=== PATIENT | female | born 1955 | race Caucasian/White ===

== ENCOUNTER 2017-04-02 09:39 | Inpatient (IN) | payer OTHER ==
[~2017-04-02] VITALS: Ht 165.1 cm; Wt 99.7 kg
[2017-04-02 11:08] LABS: EOSINOPHIL (%) 2.4 % (0-5); EOSINOPHIL COUNT 0.3 K/uL (0-0.3); HEMATOCRIT 34.2 % (36.0-46.0); IMMATURE GRANULOCYTE (%) 0.2 % (0.0-0.7); INSTRUMENT ABS NEUTROPHIL CT 7.4 K/uL; LYMPHOCYTE COUNT 3.8 K/uL (1.0-2.8); MCH 30.5 PG (29.0-34.0); MCHC 34.2 G/DL (30.0-36.0); MCV 89.3 FL (83-99); MONOCYTE COUNT 0.9 K/uL (0-0.8); NEUTROPHIL (%) 59.8 % (45-76); NEUTROPHIL COUNT 7.4 K/uL (1.8-6.4); PLATELET COUNT 274 K/uL (156-360); RBC DIS.WIDTH-CV 13.8 % (11.8-14.6); RBC DIS.WIDTH-SD 44.9 % (39-53); RED BLOOD COUNT 3.83 M/uL (3.80-5.20); WHITE BLOOD COUNT 12.4 K/uL (4.1-10.2)
[2017-04-02 11:13] LABS: INTER. NORMALIZED RATIO 1.2; PROTHROMBIN TIME 12.7 SEC (10.2-12.9)
[2017-04-02 11:16] LABS: PTT 25.1 SEC (25-37)
[2017-04-02 11:19] LABS: CHLORIDE 98 mEq/L (99-109); POTASSIUM 3.6 mEq/L (3.7-5.4); SODIUM 136 mEq/L (136-147)
[2017-04-02 11:20] LABS: GLUCOSE 142 mg/dL (70-99)
[2017-04-02 11:22] LABS: ANION GAP 15 MEQ/L (2-14)
[2017-04-02 11:24] LABS: GFR ESTIMATE (CALCULATED) 18 mL/min/
[2017-04-02 11:25] LABS: UREA NITROGEN (BUN) 27 mg/dL (9-23)
[2017-04-02 11:29] LABS: TROP-I INTERPRETATION NEGATIVE; TROPONIN-I 0.04 ng/mL (0.0-0.30)
[2017-04-02] MEDS ORDERED: CILOSTAZOL50 MG PO (13:10)
[2017-04-02] MEDS ORDERED: REBIF44 MCG/0.5 SC (13:13)
[2017-04-02] MEDS ORDERED: HYDROCHLOROTHIA25 MG PO (13:14)
[2017-04-02] MEDS ORDERED: CARVEDILOL6.25 MG PO (13:14)
[2017-04-02] MEDS ORDERED: METFORMIN HCL1000 MG PO (13:15)
[2017-04-02] MEDS ORDERED: TRAMADOL HCL50 MG PO (13:15)
[2017-04-02 13:16] LABS: ADD MIUA? YES; BILIRUBIN NEGATIVE; BLOOD NEGATIVE; COLOR YELLOW ((YELLOW)); GLUCOSE (STRIP) >=500; KETONES 5; LEUKOCYTES LARGE; NITRITE NEGATIVE; PROTEIN (STRIP) 30; SPECIFIC GRAVITY 1.029 (1.000-1.030); UROBILINOGEN 0.2 MG/DL (0.2-1.0)
[2017-04-02] MEDS ORDERED: LOSARTAN POTAS100 MG PO (13:16)
[2017-04-02] MEDS ORDERED: GABAPENTIN400 MG PO (13:16)
[2017-04-02] MEDS ORDERED: LEVEMIR100 UNIT/2 SC (13:17)
[2017-04-02] MEDS ORDERED: OMEPRAZOLE20 M2 PO (13:17)
[2017-04-02] MEDS ORDERED: GLIPIZIDE XL10 MG PO (13:18)
[2017-04-02] MEDS ORDERED: ERGOCALCIF50000 UNIT PO (13:18)
[2017-04-02] MEDS ORDERED: VITAMIN C1000 MG PO (13:19)
[2017-04-02] MEDS ORDERED: CYANOCOBALAM1000 MCG PO (13:19)
[2017-04-02 13:21] LABS: BACTERIA RARE /HPF; EPITHELIAL CELLS 2+ /HPF; MUCUS TRACE /LPF; RED BLOOD CELLS 0-5 /HPF (0-5); UCUL ADDED? YES
[2017-04-02 13:48] LABS: UR CREATININE CONCENTRATION 133.4 MG/DL
[2017-04-02 13:53] LABS: UR CREATININE CONCENTRATION 133.4 MG/DL
[2017-04-02 17:38] LABS: TROP-I INTERPRETATION NEGATIVE; TROPONIN-I 0.04 ng/mL (0.0-0.30)
[2017-04-02 21:14] VITALS: BP 121/65
[2017-04-02 21:37] LABS: POINT-OF-CARE METER ID UU14188625
[2017-04-02 23:59] LABS: TROP-I INTERPRETATION NEGATIVE; TROPONIN-I 0.04 ng/mL (0.0-0.30)
[2017-04-03] VITALS (7 sets, daily range): BP systolic 118–149; BP diastolic 53–76
[2017-04-03 06:19] LABS: HEMATOCRIT 31.6 % (36.0-46.0); MCH 30.5 PG (29.0-34.0); MCHC 33.5 G/DL (30.0-36.0); MCV 90.8 FL (83-99); MEAN PLAT.VOLUME 10.2 uM^3 (9.5-12.4); PLATELET COUNT 233 K/uL (156-360); RBC DIS.WIDTH-CV 13.8 % (11.8-14.6); RBC DIS.WIDTH-SD 45.3 % (39-53); RED BLOOD COUNT 3.48 M/uL (3.80-5.20); WHITE BLOOD COUNT 8.8 K/uL (4.1-10.2)
[2017-04-03 06:44] LABS: ANION GAP 13 MEQ/L (2-14); CHLORIDE 100 MEQ/L (99-109); GFR ESTIMATE (CALCULATED) 16 mL/min/; GLUCOSE 227 mg/dL (70-99); HDL CHOLESTEROL 29 MG/DL (Desirable>=50); NON-HDL CHOLESTEROL 178 mg/dL (Desirable<160); POTASSIUM 3.9 MEQ/L (3.7-5.4); SAMPLE HEMOLYSIS CHECK 0; SAMPLE ICTERIC CHECK 0; SAMPLE LIPEMIA CHECK 0; SODIUM 136 MEQ/L (136-147); TOTAL CHOLESTEROL 207 mg/dL (Desirable<200); TRIGLYCERIDES 552 MG/DL (Normal: <150); UREA NITROGEN (BUN) 31 mg/dL (9-23)
[2017-04-03 07:49] LABS: Estimated Average Glucose 269 mg/dL (70-123)
[2017-04-03 08:18] LABS: POINT-OF-CARE METER ID UU13113717
[2017-04-03 17:04] LABS: POINT-OF-CARE METER ID UU14188625
[2017-04-03 18:56] LABS: URIC ACID 8.9 mg/dL (3.1-9.2)
[2017-04-03 21:29] LABS: POINT-OF-CARE METER ID UU13113717
[2017-04-04 04:00] VITALS: BP 130/67
[2017-04-04 08:17] VITALS: BP 124/63
[2017-04-04 09:08] LABS: EOSINOPHIL (%) 3.3 % (0-5); EOSINOPHIL COUNT 0.2 K/uL (0-0.3); HEMATOCRIT 28.4 % (36.0-46.0); IMMATURE GRANULOCYTE (%) 0.3 % (0.0-0.7); INSTRUMENT ABS NEUTROPHIL CT 3.1 K/uL; LYMPHOCYTE COUNT 2.4 K/uL (1.0-2.8); MCH 30.4 PG (29.0-34.0); MCHC 33.5 G/DL (30.0-36.0); MCV 90.7 FL (83-99); MEAN PLAT.VOLUME 10.5 uM^3 (9.5-12.4); MONOCYTE (%) 9.7 % (3-12); MONOCYTE COUNT 0.6 K/uL (0-0.8); NEUTROPHIL (%) 48.8 % (45-76); NEUTROPHIL COUNT 3.1 K/uL (1.8-6.4); PLATELET COUNT 226 K/uL (156-360); RBC DIS.WIDTH-CV 13.8 % (11.8-14.6); RBC DIS.WIDTH-SD 45.5 % (39-53); RED BLOOD COUNT 3.13 M/uL (3.80-5.20); WHITE BLOOD COUNT 6.4 K/uL (4.1-10.2)
[2017-04-04 09:39] LABS: INTACT PARATHYROID HORMONE 166 pg/mL (10-69)
[2017-04-04 09:50] LABS: ANION GAP 9 MEQ/L (2-14); CHLORIDE 105 MEQ/L (99-109); GFR ESTIMATE (CALCULATED) 27 mL/min/; GLUCOSE 149 mg/dL (70-99); POTASSIUM 3.7 MEQ/L (3.7-5.4); SAMPLE HEMOLYSIS CHECK 0; SAMPLE ICTERIC CHECK 0; SAMPLE LIPEMIA CHECK 0; SODIUM 138 MEQ/L (136-147); UREA NITROGEN (BUN) 27 mg/dL (9-23)
[2017-04-04 10:09] LABS: ANION GAP 8 MEQ/L (2-14); CHLORIDE 106 MEQ/L (99-109); GFR ESTIMATE (CALCULATED) 27 mL/min/; GLUCOSE 146 mg/dL (70-99); IRON 30 MCG/DL (35-150); MAGNESIUM 1.2 mg/dl (1.3-2.7); POTASSIUM 3.7 MEQ/L (3.7-5.4); SAMPLE HEMOLYSIS CHECK 0; SAMPLE ICTERIC CHECK 0; SAMPLE LIPEMIA CHECK 0; SODIUM 139 MEQ/L (136-147); UREA NITROGEN (BUN) 27 mg/dL (9-23); URIC ACID 7.8 mg/dL (3.1-9.2)
[2017-04-04 11:24] VITALS: BP 125/60
[2017-04-04 15:35] VITALS: BP 119/70
[2017-04-04 17:39] LABS: POINT-OF-CARE METER ID UU13113717
[2017-04-04 19:40] VITALS: BP 150/71
[2017-04-04 21:08] LABS: POINT-OF-CARE METER ID UU13113717
[2017-04-04 23:24] VITALS: BP 139/67
[2017-04-05 03:38] VITALS: BP 128/69
[2017-04-05 05:11] LABS: EOSINOPHIL (%) 3.7 % (0-5); EOSINOPHIL COUNT 0.2 K/uL (0-0.3); IMMATURE GRANULOCYTE (%) 0.2 % (0.0-0.7); INSTRUMENT ABS NEUTROPHIL CT 1.9 K/uL; LYMPHOCYTE COUNT 1.6 K/uL (1.0-2.8); MCH 30.4 PG (29.0-34.0); MCHC 33.7 G/DL (30.0-36.0); MCV 90.3 FL (83-99); MEAN PLAT.VOLUME 10.8 uM^3 (9.5-12.4); MONOCYTE COUNT 0.6 K/uL (0-0.8); NEUTROPHIL (%) 44.9 % (45-76); NEUTROPHIL COUNT 1.9 K/uL (1.8-6.4); PLATELET COUNT 178 K/uL (156-360); RBC DIS.WIDTH-CV 13.7 % (11.8-14.6); RBC DIS.WIDTH-SD 44.6 % (39-53); RED BLOOD COUNT 2.99 M/uL (3.80-5.20); WHITE BLOOD COUNT 4.3 K/uL (4.1-10.2)
[2017-04-05 05:26] LABS: POTASSIUM 4.4 mEq/L (3.7-5.4); SODIUM 143 mEq/L (136-147)
[2017-04-05 05:27] LABS: CHLORIDE 110 mEq/L (99-109)
[2017-04-05 05:28] LABS: GLUCOSE 159 mg/dL (70-99)
[2017-04-05 05:30] LABS: ANION GAP 8 MEQ/L (2-14)
[2017-04-05 05:32] LABS: GFR ESTIMATE (CALCULATED) 35 mL/min/
[2017-04-05 05:33] LABS: UREA NITROGEN (BUN) 24 mg/dL (9-23)
[2017-04-05 07:30] VITALS: BP 138/78
[2017-04-05 09:00] LABS: POINT-OF-CARE METER ID UU14188625
[2017-04-05 11:51] LABS: POINT-OF-CARE METER ID UU13113717
[2017-04-05] MEDS ORDERED: ASPIR-LOW81 MG PO (13:17)
[2017-04-05] MEDS ORDERED: ATORVASTATIN CA40 MG PO (13:17)
[2017-04-05] MEDS ORDERED: PEPCID20 MG PO (14:33)
[2017-04-05] MEDS ORDERED: NOVOLOG PE100 UNITS/ SC (14:34)
[2017-04-05] MEDS ORDERED: HEPARIN SO5000 UNIT4 SC (14:35)
[2017-04-05] MEDS ORDERED: TYLENOL REGULA325 MG PO (14:36)
== END 2017-04-05 13:47 | DRG 65 ==
LOC: EME 09:39 → 5SOUTH 11:13 → EDOF 11:13 → ENRESERV 11:15 → 5SOUTH 20:57
PROVIDERS: Emergency Medicine; Hospitalist; Internal Medicine; Internal Medicine Nephrology
DX: I63.40 Cerebral infarction due to embolism of unspecified cerebral artery (principal); G35 Multiple sclerosis; Z87.891 Personal history of nicotine dependence; E78.5 Hyperlipidemia, unspecified; E11.22 Type 2 diabetes mellitus with diabetic chronic kidney disease; I12.9 Hypertensive chronic kidney disease with stage 1 through stage 4 chronic kidney disease, or unspecified chronic kidney disease; N18.9 Chronic kidney disease, unspecified; G81.94 Hemiplegia, unspecified affecting left nondominant side; N17.9 Acute kidney failure, unspecified; E66.01 Morbid (severe) obesity due to excess calories; Z68.31 Body mass index [BMI] 31.0-31.9, adult; E78.1 Pure hyperglyceridemia; Z53.20 Procedure and treatment not carried out because of patient's decision for unspecified reasons; D64.9 Anemia, unspecified; R29.705 NIHSS score 5
CPT/HCPCS: 70450; 70547; 70551; 71010; 76770; 80048; 80048 91; 80061; 80069; 81003; 82040; 82306; 82570; 82607; 82746; 82948; 83036; 83540; 83735; 83970; 84156; 84300; 84443; 84466; 84484; 84550; 85025; 85027; 85610; 85730; 87086; 89190; 93005; 93306; 93880; 99281; 99285; J1644; J1815; J7030

== ENCOUNTER 2017-04-05 09:58 | Inpatient (IN) | payer OTHER ==
[~2017-04-05 09:58] MED LIST: CARVEDILOL6.25 MG PO; CILOSTAZOL50 MG PO; CYANOCOBALAM1000 MCG PO; ERGOCALCIF50000 UNIT PO; GABAPENTIN400 MG PO; GLIPIZIDE XL10 MG PO; HYDROCHLOROTHIA25 MG PO; LEVEMIR100 UNIT/2 SC; LOSARTAN POTAS100 MG PO; METFORMIN HCL1000 MG PO; OMEPRAZOLE20 M2 PO; REBIF44 MCG/0.5 SC; TRAMADOL HCL50 MG PO; VITAMIN C1000 MG PO
[2017-04-05] MEDS ORDERED: ASPIR-LOW81 MG PO (13:17)
[2017-04-05] MEDS ORDERED: ATORVASTATIN CA40 MG PO (13:17)
[2017-04-05 14:15] VITALS: BP 163/86
[2017-04-05] MEDS ORDERED: PEPCID20 MG PO (14:33)
[2017-04-05] MEDS ORDERED: NOVOLOG PE100 UNITS/ SC (14:34)
[2017-04-05] MEDS ORDERED: HEPARIN SO5000 UNIT4 SC (14:35)
[2017-04-05] MEDS ORDERED: TYLENOL REGULA325 MG PO (14:36)
[2017-04-05 15:27] LABS: HEMATOCRIT 28.5 % (36.0-46.0); MCH 31.3 PG (29.0-34.0); MCHC 34.4 G/DL (30.0-36.0); MCV 91.1 FL (83-99); MEAN PLAT.VOLUME 10.7 uM^3 (9.5-12.4); PLATELET COUNT 204 K/uL (156-360); RBC DIS.WIDTH-CV 13.9 % (11.8-14.6); RBC DIS.WIDTH-SD 46.1 % (39-53); RED BLOOD COUNT 3.13 M/uL (3.80-5.20); WHITE BLOOD COUNT 5.9 K/uL (4.1-10.2)
[2017-04-05 15:49] LABS: ALKALINE PHOSPHATASE 72 IU/L (3-129); ANION GAP 7 MEQ/L (2-14); CHLORIDE 105 MEQ/L (99-109); GFR ESTIMATE (CALCULATED) 41 mL/min/; GLUCOSE 223 mg/dL (70-99); POTASSIUM 4.4 MEQ/L (3.7-5.4); SAMPLE HEMOLYSIS CHECK 0; SAMPLE ICTERIC CHECK 0; SAMPLE LIPEMIA CHECK 0; SODIUM 138 MEQ/L (136-147); TOTAL BILIRUBIN 0.3 MG/DL (0.0-1.0); UREA NITROGEN (BUN) 21 mg/dL (9-23)
[2017-04-05 16:04] VITALS: BP 148/78
[2017-04-05 16:35] LABS: POINT-OF-CARE METER ID UU13113720
[2017-04-05 21:14] LABS: POINT-OF-CARE METER ID UU13113720
[2017-04-05 21:17] VITALS: BP 124/75
[2017-04-06 04:52] VITALS: BP 110/57
[2017-04-06 07:20] LABS: ANION GAP 7 MEQ/L (2-14); CHLORIDE 107 MEQ/L (99-109); GFR ESTIMATE (CALCULATED) 38 mL/min/; GLUCOSE 146 mg/dL (70-99); POTASSIUM 4.8 MEQ/L (3.7-5.4); SAMPLE HEMOLYSIS CHECK 0; SAMPLE ICTERIC CHECK 0; SAMPLE LIPEMIA CHECK 0; SODIUM 141 MEQ/L (136-147); UREA NITROGEN (BUN) 20 mg/dL (9-23)
[2017-04-06 07:35] LABS: POINT-OF-CARE METER ID UU14174215
[2017-04-06 11:21] LABS: POINT-OF-CARE METER ID UU13113720
[2017-04-06 15:46] VITALS: BP 131/62
[2017-04-06 16:23] LABS: POINT-OF-CARE METER ID UU14174215
[2017-04-06 21:20] LABS: POINT-OF-CARE METER ID UU14174215
[2017-04-07 05:59] VITALS: BP 136/74
[2017-04-07 07:25] LABS: ANION GAP 8 MEQ/L (2-14); CHLORIDE 105 MEQ/L (99-109); GFR ESTIMATE (CALCULATED) 41 mL/min/; GLUCOSE 107 mg/dL (70-99); POTASSIUM 4.5 MEQ/L (3.7-5.4); SAMPLE HEMOLYSIS CHECK 0; SAMPLE ICTERIC CHECK 0; SAMPLE LIPEMIA CHECK 0; SODIUM 140 MEQ/L (136-147); UREA NITROGEN (BUN) 21 mg/dL (9-23)
[2017-04-07 07:32] LABS: POINT-OF-CARE METER ID UU14174215; POINT-OF-CARE USER ID NUTSLF44
[2017-04-07 11:34] LABS: POINT-OF-CARE METER ID UU14174215; POINT-OF-CARE USER ID NUTSLF44
[2017-04-07 15:28] VITALS: BP 111/58
[2017-04-07 17:08] LABS: POINT-OF-CARE METER ID UU13113720
[2017-04-07 21:04] LABS: POINT-OF-CARE METER ID UU14174215
[2017-04-08 05:59] LABS: ANION GAP 9 MEQ/L (2-14); CHLORIDE 106 MEQ/L (99-109); GFR ESTIMATE (CALCULATED) 38 mL/min/; GLUCOSE 125 mg/dL (70-99); POTASSIUM 4.3 MEQ/L (3.7-5.4); SAMPLE HEMOLYSIS CHECK 0; SAMPLE ICTERIC CHECK 0; SAMPLE LIPEMIA CHECK 0; SODIUM 142 MEQ/L (136-147); UREA NITROGEN (BUN) 28 mg/dL (9-23)
[2017-04-08 06:03] VITALS: BP 133/72
[2017-04-08 07:15] LABS: POINT-OF-CARE METER ID UU13113720; POINT-OF-CARE USER ID AHSSSJB31
[2017-04-08 12:23] LABS: POINT-OF-CARE METER ID UU14174215
[2017-04-08 14:53] VITALS: BP 123/59
[2017-04-08 16:31] LABS: POINT-OF-CARE METER ID UU14174215
[2017-04-08 21:02] LABS: POINT-OF-CARE METER ID UU14174215
[2017-04-09] MEDS ORDERED: ATORVASTATIN CA40 MG PO (00:18)
[2017-04-09] MEDS ORDERED: DOCUSATE SODIU100 MG PO (00:18)
[2017-04-09] MEDS ORDERED: SENNA PLUS TAB1 EACH PO (00:18)
[2017-04-09 04:26] VITALS: BP 103/56
[2017-04-09 05:26] LABS: HEMATOCRIT 27.9 % (36.0-46.0); MCH 32.1 PG (29.0-34.0); MCHC 35.1 G/DL (30.0-36.0); MCV 91.5 FL (83-99); MEAN PLAT.VOLUME 10.7 uM^3 (9.5-12.4); PLATELET COUNT 209 K/uL (156-360); RBC DIS.WIDTH-CV 13.8 % (11.8-14.6); RBC DIS.WIDTH-SD 46.3 % (39-53); RED BLOOD COUNT 3.05 M/uL (3.80-5.20); WHITE BLOOD COUNT 5.6 K/uL (4.1-10.2)
[2017-04-09 05:48] LABS: ANION GAP 9 MEQ/L (2-14); CHLORIDE 106 MEQ/L (99-109); GFR ESTIMATE (CALCULATED) 35 mL/min/; GLUCOSE 132 mg/dL (70-99); POTASSIUM 4.3 MEQ/L (3.7-5.4); SAMPLE HEMOLYSIS CHECK 0; SAMPLE ICTERIC CHECK 0; SAMPLE LIPEMIA CHECK 0; SODIUM 141 MEQ/L (136-147); UREA NITROGEN (BUN) 33 mg/dL (9-23)
[2017-04-09 07:26] LABS: POINT-OF-CARE METER ID UU13113712
[2017-04-09 11:19] LABS: POINT-OF-CARE METER ID UU14174215
== END 2017-04-09 13:20 | disposition home or self-care (01) | DRG 57 ==
LOC: 3WEST 09:58 → ENPENDDIS 04-09 → 3WEST 04-09 13:20
PROVIDERS: Internal Medicine Nephrology; Physical Medicine & Rehabilitation Pain Medicine; Psychiatry & Neurology Neurology
PROC: F07M0ZZ Range of Motion and Joint Mobility Treatment of Musculoskeletal System - Whole Body (ICD-10-PCS; principal; 2017-04-05)
DX: I69.354 Hemiplegia and hemiparesis following cerebral infarction affecting left non-dominant side (principal); N17.9 Acute kidney failure, unspecified; E11.40 Type 2 diabetes mellitus with diabetic neuropathy, unspecified; G35 Multiple sclerosis; I10 Essential (primary) hypertension; K59.00 Constipation, unspecified; Z87.891 Personal history of nicotine dependence; Z79.4 Long term (current) use of insulin; Z79.82 Long term (current) use of aspirin; Z82.3 Family history of stroke
CPT/HCPCS: 80048; 80053; 80069; 82948; 85027; 97110 GO; 97112 GP; 97530 GP; J1644; J1815

== ENCOUNTER 2017-04-21 13:52 | Observation (INO) | payer OTHER ==
[~2017-04-21] VITALS: Ht 165.1 cm; Wt 95.7 kg
[~2017-04-21 13:52] MED LIST changes: +ASPIR-LOW81 MG PO; +ATORVASTATIN CA40 MG PO; +DOCUSATE SODIU100 MG PO; +HEPARIN SO5000 UNIT4 SC; +NOVOLOG PE100 UNITS/ SC; +PEPCID20 MG PO; +SENNA PLUS TAB1 EACH PO; +TYLENOL REGULA325 MG PO
[2017-04-21 15:08] LABS: POINT-OF-CARE METER ID UU14100415
[2017-04-21 15:19] LABS: ADD MIUA? YES; BILIRUBIN NEGATIVE; BLOOD NEGATIVE; GLUCOSE (STRIP) NEGATIVE; KETONES NEGATIVE; LEUKOCYTES NEGATIVE; NITRITE NEGATIVE; PROTEIN (STRIP) NEGATIVE; SPECIFIC GRAVITY 1.005 (1.000-1.030); UROBILINOGEN 0.2 MG/DL (0.2-1.0)
[2017-04-21 15:23] LABS: EOSINOPHIL (%) 2.7 % (0-5); EOSINOPHIL COUNT 0.2 K/uL (0-0.3); HEMATOCRIT 32.2 % (36.0-46.0); IMMATURE GRANULOCYTE (%) 0.5 % (0.0-0.7); INSTRUMENT ABS NEUTROPHIL CT 6.2 K/uL; LYMPHOCYTE COUNT 1.4 K/uL (1.0-2.8); MCH 30.1 PG (29.0-34.0); MCHC 32.9 G/DL (30.0-36.0); MCV 91.5 FL (83-99); MEAN PLAT.VOLUME 9.8 uM^3 (9.5-12.4); MONOCYTE COUNT 0.6 K/uL (0-0.8); NEUTROPHIL (%) 73.1 % (45-76); NEUTROPHIL COUNT 6.2 K/uL (1.8-6.4); PLATELET COUNT 260 K/uL (156-360); RBC DIS.WIDTH-CV 13.5 % (11.8-14.6); RBC DIS.WIDTH-SD 45.7 % (39-53); RED BLOOD COUNT 3.52 M/uL (3.80-5.20); WHITE BLOOD COUNT 8.4 K/uL (4.1-10.2)
[2017-04-21 15:25] LABS: COLOR LT. YELLOW ((YELLOW))
[2017-04-21 15:34] LABS: CHLORIDE 105 mEq/L (99-109); POTASSIUM 4.3 mEq/L (3.7-5.4); SODIUM 140 mEq/L (136-147)
[2017-04-21 15:35] LABS: MAGNESIUM 1.8 mg/dL (1.3-2.7)
[2017-04-21 15:36] LABS: GLUCOSE 61 mg/dL (70-99)
[2017-04-21 15:37] LABS: ANION GAP 9 MEQ/L (2-14)
[2017-04-21 15:38] LABS: TOTAL BILIRUBIN 0.3 mg/dL (0.0-1.0)
[2017-04-21 15:40] LABS: ALKALINE PHOSPHATASE 95 IU/L (3-129); GFR ESTIMATE (CALCULATED) 49 mL/min/
[2017-04-21 15:41] LABS: UREA NITROGEN (BUN) 15 mg/dL (9-23)
[2017-04-21 15:43] LABS: TROP-I INTERPRETATION NEGATIVE; TROPONIN-I 0.02 ng/mL (0.0-0.30)
[2017-04-21 15:49] LABS: BACTERIA 1+ /HPF; CASTS NONE SEEN /LPF; EPITHELIAL CELLS RARE /HPF; MUCUS NONE SEEN /LPF; RED BLOOD CELLS NONE SEEN /HPF (0-5); UCUL ADDED? NO; WHITE BLOOD CELLS RARE /HPF (0-5)
[2017-04-21 15:50] LABS: CRYSTALS NONE SEEN
[2017-04-21] MEDS ORDERED: ASPIR 8181 M1 PO (16:54)
[2017-04-21] MEDS ORDERED: COLACE100 MG PO (16:55)
[2017-04-21] MEDS ORDERED: SENNA PLUS TAB1 EACH PO (16:55)
[2017-04-21] MEDS ORDERED: MIRALAX119 GM PO (16:56)
[2017-04-21] MEDS ORDERED: PRILOSEC20 MG PO (16:56)
[2017-04-21 17:33] LABS: POINT-OF-CARE METER ID UU14100415
[2017-04-21 19:50] LABS: POINT-OF-CARE METER ID UU14100415
[2017-04-21 19:58] VITALS: BP 144/64
[2017-04-21 21:39] LABS: POINT-OF-CARE METER ID UU13113700
[2017-04-21 23:33] VITALS: BP 150/76
[2017-04-21 23:35] VITALS: BP 123/59
[2017-04-22 05:53] LABS: ANION GAP 9 MEQ/L (2-14); CHLORIDE 107 MEQ/L (99-109); GFR ESTIMATE (CALCULATED) 49 mL/min/; POTASSIUM 4.1 MEQ/L (3.7-5.4); SAMPLE HEMOLYSIS CHECK 0; SAMPLE ICTERIC CHECK 0; SAMPLE LIPEMIA CHECK 0; SODIUM 143 MEQ/L (136-147); UREA NITROGEN (BUN) 14 mg/dL (9-23)
[2017-04-22 06:10] LABS: GLUCOSE 177 mg/dL (70-99)
[2017-04-22 08:15] VITALS: BP 160/84
[2017-04-22 08:44] LABS: POINT-OF-CARE METER ID UU13113700
[2017-04-22] MEDS ORDERED: NOVOLOG PE100 UNITS/ SC (09:57)
[2017-04-22] MEDS ORDERED: LEVEMIR100 UNIT/2 SC (10:24)
[2017-04-22 11:48] VITALS: BP 132/62
== END 2017-04-22 13:56 | disposition home or self-care (01) ==
LOC: EME 13:52 → ENRESERV 17:46 → EDOF 17:54 → ENRESERV 18:19 → 5WEST 19:54 → ENPENDDIS 04-22 → 5WEST 04-22 13:56
PROVIDERS: Emergency Medicine; Internal Medicine
DX: E11.641 Type 2 diabetes mellitus with hypoglycemia with coma (principal); R68.0 Hypothermia, not associated with low environmental temperature; I12.9 Hypertensive chronic kidney disease with stage 1 through stage 4 chronic kidney disease, or unspecified chronic kidney disease; N18.3 Chronic kidney disease, stage 3 (moderate); E11.22 Type 2 diabetes mellitus with diabetic chronic kidney disease; G35 Multiple sclerosis; K21.9 Gastro-esophageal reflux disease without esophagitis; K59.00 Constipation, unspecified; D63.1 Anemia in chronic kidney disease; Z86.73 Personal history of transient ischemic attack (TIA), and cerebral infarction without residual deficits; Z87.891 Personal history of nicotine dependence; Z79.4 Long term (current) use of insulin; Z79.82 Long term (current) use of aspirin
CPT/HCPCS: 70450; 80048; 80053; 81003; 82948; 83735; 84484; 85025; 93005; 99281; 99284; G0378; J1650; J1815; J7042

== ENCOUNTER → 2017-06-13 | Outpatient (CLI) | payer OTHER ==
[~2017-06-13] MED LIST changes: +ASPIR 8181 M1 PO; +COLACE100 MG PO; +MIRALAX119 GM PO; +PRILOSEC20 MG PO
== END | disposition home or self-care (01) ==
LOC: NUC 08:30
DX: K31.84 Gastroparesis (principal); E11.9 Type 2 diabetes mellitus without complications; K21.9 Gastro-esophageal reflux disease without esophagitis
CPT/HCPCS: 78264; A9541

== ENCOUNTER 2017-11-15 10:10 | Day surgery (SDC) | payer OTHER ==
[2017-11-15] MEDS ORDERED: METFORMIN HCL500 MG PO (11:12)
== END 2017-11-15 19:40 | disposition short-term general hospital (02) ==
LOC: CATH 10:10
PROVIDERS: Internal Medicine Interventional Cardiology
DX: I25.10 Atherosclerotic heart disease of native coronary artery without angina pectoris (principal); I34.0 Nonrheumatic mitral (valve) insufficiency; E11.9 Type 2 diabetes mellitus without complications; I10 Essential (primary) hypertension; I73.9 Peripheral vascular disease, unspecified; E78.2 Mixed hyperlipidemia; I69.354 Hemiplegia and hemiparesis following cerebral infarction affecting left non-dominant side; Z79.02 Long term (current) use of antithrombotics/antiplatelets; Z79.4 Long term (current) use of insulin; Z95.820 Peripheral vascular angioplasty status with implants and grafts
CPT/HCPCS: 82948; 85347; 93005; C1769; C1887; J1644; J2250; J2405; J3010; J7040